=== PATIENT | male | born 2000 | race Caucasian/White ===

== ENCOUNTER 2023-03-31 03:39 | Emergency (ER) | payer BC ==
[~2023-03-31] VITALS: Ht 165.1 cm; Wt 68.0 kg
[2023-03-31 04:00] VITALS: BP 126/78; PULSE 92; RESP 16; TEMP 99.4; O2SAT 98
== END 2023-03-31 05:00 | disposition left against medical advice (07) ==
LOC: ER 03:39
DX: Z53.21 Procedure and treatment not carried out due to patient leaving prior to being seen by health care provider (principal)
CPT/HCPCS: 99281

== ENCOUNTER 2023-03-31 05:16 | Emergency (ER) | payer BC ==
[~2023-03-31] VITALS: Ht 165.1 cm; Wt 67.5 kg
[2023-03-31 05:40] VITALS: BP 125/77; PULSE 98; RESP 16; TEMP 98; O2SAT 98
== END 2023-03-31 07:00 | disposition left against medical advice (07) ==
LOC: ER 05:16
DX: R06.02 Shortness of breath (principal); Z91.012 Allergy to eggs; Z91.011 Allergy to milk products
CPT/HCPCS: 99281

== ENCOUNTER 2023-04-01 21:43 | Emergency (ER) | payer BC ==
[~2023-04-01] VITALS: Ht 167.6 cm; Wt 72.2 kg
[2023-04-01 21:49] VITALS: BP 139/67; PULSE 100; RESP 18; TEMP 98; O2SAT 99
== END 2023-04-01 23:35 | disposition home or self-care (01) ==
LOC: ER 21:43
DX: R06.00 Dyspnea, unspecified (principal); F32.9 Major depressive disorder, single episode, unspecified; F20.9 Schizophrenia, unspecified
CPT/HCPCS: 71045; 99283

== ENCOUNTER 2023-04-13 18:03 | Emergency (ER) | payer BC ==
[~2023-04-13] VITALS: Ht 167.6 cm; Wt 71.0 kg
[2023-04-13 18:09] VITALS: BP 119/74; PULSE 65; RESP 18; O2SAT 100
[2023-04-13] MEDS ORDERED: SODIUM CHLORIDE 0.9% 1,000 ML IV ONE ×2 (19:45)
[2023-04-13] MEDS ORDERED: ONDANSETRON HCL 4MG/2ML INJ IV ONE (19:45)
[2023-04-13] MEDS ORDERED: FAMOTIDINE 20MG/2ML VIAL IV ONE (19:45)
[2023-04-13] MEDS ORDERED: MAGNESIUM/ALUMINUM HYDROXIDE/SIMETHICONE 30ML UDC PO ONE (19:45)
== END 2023-04-13 20:15 | disposition home or self-care (01) ==
LOC: ER 18:03
DX: J02.9 Acute pharyngitis, unspecified (principal); F32.9 Major depressive disorder, single episode, unspecified; F20.9 Schizophrenia, unspecified
CPT/HCPCS: 99281; J7030

== ENCOUNTER 2023-06-12 08:32 | Emergency (ER) | payer BC ==
[~2023-06-12] VITALS: Ht 170.2 cm; Wt 70.0 kg
[2023-06-12 08:42] VITALS: O2SAT 100
[2023-06-12 09:40] VITALS: BP 119/74; PULSE 66; RESP 18; TEMP 98.2
== END 2023-06-12 09:41 | disposition home or self-care (01) ==
LOC: ER 08:32
DX: J02.9 Acute pharyngitis, unspecified (principal); Z86.59 Personal history of other mental and behavioral disorders; Z91.012 Allergy to eggs; Z91.011 Allergy to milk products
CPT/HCPCS: 71045; 99283